=== PATIENT | female | born 1950 | race Caucasian/White ===

== ENCOUNTER → 2018-01-28 09:53 | Outpatient (CLI) | payer MEDICARE, OTHER, SELFPAY ==
--- NOTE | 2018-01-28 | DI.US.S_ITS ---
PROCEDURE: US ABDOMEN COMPLETE INDICATIONS: CIRRHOSIS TECHNIQUE: Real-time scanning was performed of the abdominal and retroperitoneal organs, with image documentation. COMPARISON: [facility], US, ABDOMEN COMPLETE, 06/16/2016, 9:58. [facility], US, ABDOMEN COMPLETE, 12/13/2015, 10:15. FINDINGS: Liver: Liver is normal in size and homogeneous in echotexture, but the hepatic margins are nodular suspicious for representing underlying cirrhosis. Gallbladder: Surgically absent. Biliary ducts: Intrahepatic bile ducts are non-dilated. Extrahepatic bile duct caliber measures 8.5 mm. Normal is 6-7 mm or less in diameter, or 10 mm or less post-cholecystectomy. Pancreas: Visualized portions of the pancreas are sonographically normal. Spleen: Spleen is normal in size and homogeneous in echotexture. Kidneys: Kidneys are normal in size and echotexture. Right kidney measures 9.9 cm long; left kidney measures 9.4 cm long. No hydronephrosis or nephrolithiasis. No solid masses. Aorta: Visualized aorta is normal in caliber at less than 3 cm. Iliacs: Proximal common iliac arteries are normal in caliber at less than 2.5 cm. IVC: Intrahepatic inferior vena cava is patent. Miscellaneous: No free abdominal fluid. IMPRESSION: Lobulated margins of the liver, suspicious for underlying cirrhosis. No hepatic mass lesion found. Prior cholecystectomy. Dictated by: Rolando Gregg M.D. on 01/28/2018 at 10:53 Approved by: Rolando Gregg M.D. on 01/28/2018 at 10:55
[2018-01-28 10:48] LABS: Add Manual Diff / Slide Review NO; Eosinophils Percent Auto 1.3 % (2-4); Hematocrit 46.3 % (36-46); Hemoglobin 15.7 g/dL (12.0-16.0); Lymphocytes Percent Auto 17.8 % (25-40); Mean Corpuscular HGB Conc 33.8 % (30-36); Mean Corpuscular Hemoglobin 30.2 PG (26-34); Mean Corpuscular Volume 89.4 fL (80-100); Monocytes Percent Auto 6.3 % (3-14); Neutrophils Absolute Auto 3500 /uL (3000-5900); Neutrophils Percent Auto 73.6 % (50-75); Platelet Count 109 X10^3/uL (150-400); Red Blood Cell Count 5.18 X10^6/uL (4.0-5.2); Red Cell Distribution Width 14.9 % (11.6-14.8); White Blood Cell Count 4.8 X10^3/uL (4.5-11.0)
[2018-01-28 11:01] LABS: INR 1.2 (0.9-1.3); Prothrombin Time 13.4 SECONDS (10.1-12.7)
[2018-01-28 11:53] LABS: Alanine Aminotransferase 31 IU/L (9-52); Albumin 4.4 g/dL (3.5-5.0); Albumin Globulin Ratio 1.5 (1.0-2.8); Alkaline Phosphatase 104 U/L (38-126); Aspartate Aminotransferase 28 IU/L (14-36); BUN Creatinine Ratio 12.9 (6-22); Bilirubin Total 0.6 mg/dL (0.2-1.3); Blood Urea Nitrogen 9 mg/dL (7-17); Carbon Dioxide 30 mmol/L (22-32); Chloride 105 mmol/L (98-107); Estimated Glomerular Filt Rate > 60.0 mL/min (>60); Globulin 2.9 g/dL (1.7-4.1); Glucose 101 mg/dL (80-110); HEMOLYSIS < 15 (0-50); Potassium 4.7 mmol/L (3.4-5.1); Sodium 146 mmol/L (137-145); Total Protein 7.3 g/dL (6.3-8.2)
[2018-01-30 15:07] LABS: Alpha Fetoprotein 3.1 ng/mL (< 6.1)
== END ==
PROVIDERS: PCP Internal Medicine; Visit Provider Internal Medicine
DX: K74.60 Unspecified cirrhosis of liver (principal); F41.1 Generalized anxiety disorder; I85.10 Secondary esophageal varices without bleeding; Z90.49 Acquired absence of other specified parts of digestive tract
CPT/HCPCS: 36415; 76700; 80053; 82105; 85025; 85610

== ENCOUNTER → 2018-03-22 12:29 | Outpatient (CLI) | payer MEDICARE, OTHER, SELFPAY ==
--- NOTE | 2018-03-22 | DI.RAD.S_ITS ---
This blank DEXA report has been sent in error by the PACS system. The correct and complete report will be forthcoming in 1-2 days. Thank you for your patience and understanding. Dictated by: Javier Kramer M.D. on 03/22/2018 at 14:18 Approved by: Jaiver Kramer M.D. on 03/22/2018 at 14:18
--- NOTE | 2018-03-22 | DI.MG.S_ITS ---
BILATERAL DIGITAL SCREENING MAMMOGRAM 3D/2D WITH CAD: 03/22/2018 CLINICAL: Routine screening. Comparison is made to exams dated: 12/13/2015 mammogram, 02/13/2014 mammogram, and 07/06/2012 mammogram - [facility]. There are scattered fibroglandular elements in both breasts. Current study was also evaluated with a Computer Aided Detection (CAD) system. There are benign calcifications in both breasts. No significant masses, calcifications, or other findings are seen in either breast. There has been no significant interval change. IMPRESSION: There is no mammographic evidence of malignancy. A 1 year screening mammogram is recommended. This exam was interpreted at Station ID: [id number]. NOTE: For mammograms, a report in lay terms will be sent to the patient. Approximately 15% of breast malignancies will not be visualized mammographically. In the management of a palpable breast mass, a negative mammogram must not discourage biopsy of a clinically suspicious lesion. Electronically Signed By: Santana graham/khurram:03/22/2018 17:34:58 letter sent: Normal Exam ACR BI-RADS Category 2: Benign Finding(s) 3342F
== END ==
PROVIDERS: PCP Internal Medicine; Visit Provider Internal Medicine
DX: Z12.31 Encounter for screening mammogram for malignant neoplasm of breast (principal); M85.88 Other specified disorders of bone density and structure, other site; Z78.0 Asymptomatic menopausal state; F17.200 Nicotine dependence, unspecified, uncomplicated; Z82.62 Family history of osteoporosis
CPT/HCPCS: 77063; 77067; 77080

== ENCOUNTER → 2018-06-10 09:43 | Outpatient (CLI) | payer MEDICARE, OTHER, SELFPAY ==
[2018-06-10 10:25] LABS: Influenza A and B by PCR Rapid Negative (Negative)
== END ==
PROVIDERS: PCP Internal Medicine; Visit Provider Physician Assistant
DX: R05 Cough (principal)
CPT/HCPCS: 87400

== ENCOUNTER → 2018-06-10 10:28 | Outpatient (CLI) | payer MEDICARE, OTHER, SELFPAY ==
--- NOTE | 2018-06-10 10:30 | DI.RAD.S_ITS ---
PROCEDURE: XR CHEST 2V INDICATIONS: cough TECHNIQUE: 2 views of the chest were acquired. COMPARISON: [facility], , CHEST 2 VIEW, 03/15/2013, 11:24. FINDINGS: Surgical changes and devices: Surgical clips in the gallbladder fossa. Lungs and pleura: Lungs are hyperinflated with chronic coarse interstitial markings. There is a small posterior right lower lobe consolidation seen best on lateral view. No pleural effusions or pneumothorax. Mediastinum: Mediastinal contours are normal. Heart size is normal. Bones and chest wall: No suspicious bony abnormalities. Soft tissues appear unremarkable. IMPRESSION: 1. Right lower lobe consolidation suggestive of focal pneumonia. No significant pleural effusion. 2. Finding superimposed on mild emphysema. Dictated by: Desiree Stallworth M.D. on 06/10/2018 at 10:52 Approved by: Desiree Stallworth M.D. on 06/10/2018 at 10:54
== END ==
PROVIDERS: PCP Internal Medicine; Visit Provider Physician Assistant
DX: R05 Cough (principal); J43.9 Emphysema, unspecified
CPT/HCPCS: 71046; 87400

== ENCOUNTER → 2018-09-13 07:59 | Outpatient (CLI) | payer MEDICARE, OTHER, SELFPAY ==
--- NOTE | 2018-09-13 | DI.US.S_ITS ---
PROCEDURE: US ABDOMEN COMPLETE INDICATIONS: CIRRHOSIS TECHNIQUE: Real-time scanning was performed of the abdominal and retroperitoneal organs, with image documentation. COMPARISON: [facility], US, US ABDOMEN COMPLETE, 01/28/2018, 10:01. FINDINGS: Liver: Liver is coarse in echotexture and there is scalloping of the hepatic capsule. No focal mass lesion. Limited Doppler assessment demonstrates appropriate hepatopedal flow within the main portal vein. Gallbladder: Surgically absent. Biliary ducts: Intrahepatic bile ducts are non-dilated. Extrahepatic bile duct caliber measures 7.0 mm. Normal is 6-7 mm or less in diameter, or 10 mm or less post-cholecystectomy. Pancreas: Visualized portions of the pancreas are sonographically normal. Spleen: Spleen is normal in size and homogeneous in echotexture. Kidneys: Kidneys are normal in size and echotexture. Right kidney measures 9.5 cm long; left kidney measures 10.4 cm long. No hydronephrosis or nephrolithiasis. No solid masses. Aorta: Visualized aorta is normal in caliber at less than 3 cm. Iliacs: Proximal common iliac arteries are normal in caliber at less than 2.5 cm. IVC: Intrahepatic inferior vena cava is patent. Miscellaneous: No free abdominal fluid. IMPRESSION: 1. Cirrhotic hepatic morphology redemonstrated similar to prior examination and no focal hepatic lesion is seen. Dictated by: Charlie Steward [facility] Interpreted: Rolando Gregg MD on 09/13/2018 at 10:36 Approved by: Rolando Gregg M.D. on 09/13/2018 at 12:02
[2018-09-13 08:29] LABS: Add Manual Diff / Slide Review NO; Basophils Absolute Auto 0 /uL (0-100); Basophils Percent Auto 0.9 % (0-2); Eosinophils Absolute Auto 100 /uL (0-450); Eosinophils Percent Auto 1.2 % (2-4); Hematocrit 46.5 % (36-46); Hemoglobin 15.9 g/dL (12.0-16.0); Lymphocytes Absolute Auto 800 /uL (1100-4500); Lymphocytes Percent Auto 14.9 % (25-40); Mean Corpuscular HGB Conc 34.3 % (30-36); Mean Corpuscular Hemoglobin 30.7 PG (26-34); Mean Corpuscular Volume 89.5 fL (80-100); Monocytes Absolute Auto 300 /uL (0-900); Monocytes Percent Auto 5.7 % (3-14); Neutrophils Absolute Auto 4300 /uL (1500-7000); Neutrophils Percent Auto 77.3 % (50-75); Platelet Count 117 X10^3/uL (150-400); Red Blood Cell Count 5.19 X10^6/uL (4.0-5.2); Red Cell Distribution Width 14.4 % (11.6-14.8); White Blood Cell Count 5.6 X10^3/uL (4.5-11.0)
[2018-09-13 09:03] LABS: INR 1.2 (0.9-1.3); Prothrombin Time 13.8 SECONDS (10.1-12.7)
[2018-09-13 09:09] LABS: Alanine Aminotransferase 17 IU/L (9-52); Albumin 4.3 g/dL (3.5-5.0); Albumin Globulin Ratio 1.2 (1.0-2.8); Alkaline Phosphatase 106 U/L (38-126); Aspartate Aminotransferase 29 IU/L (14-36); BUN Creatinine Ratio 12.9 (6-22); Bilirubin Total 0.8 mg/dL (0.2-1.3); Blood Urea Nitrogen 9 mg/dL (7-17); Calcium 9.2 mg/dL (8.4-10.2); Carbon Dioxide 29 mmol/L (22-32); Chloride 104 mmol/L (98-107); Estimated Glomerular Filt Rate > 60.0 mL/min (>60); Globulin 3.5 g/dL (1.7-4.1); Glucose 135 mg/dL (80-110); HEMOLYSIS < 15 (0-50); Sodium 142 mmol/L (137-145); Total Protein 7.8 g/dL (6.3-8.2)
[2018-09-15 12:26] LABS: Alpha Fetoprotein 3.5 ng/mL (< 6.1)
== END ==
PROVIDERS: PCP Internal Medicine; Visit Provider Internal Medicine
DX: K74.60 Unspecified cirrhosis of liver (principal); I85.10 Secondary esophageal varices without bleeding; F41.1 Generalized anxiety disorder
CPT/HCPCS: 36415; 76700; 80053; 82105; 85025; 85610

== ENCOUNTER → 2019-03-07 11:09 | Outpatient (CLI) | payer MEDICARE, OTHER, SELFPAY ==
--- NOTE | 2019-03-07 | DI.US.S_ITS ---
PROCEDURE: US ABDOMEN COMPLETE INDICATIONS: UNSPECIFIED CIRRHOSIS OF LIVER TECHNIQUE: Real-time scanning was performed of the abdominal and retroperitoneal organs, with image documentation. COMPARISON: [facility], US, US ABDOMEN COMPLETE, 01/28/2018, 10:01. [facility], US, ABDOMEN LIMITED, 07/01/2017, 9:00. US, US ABDOMEN COMPLETE, 01/22/2017, 9:45. [facility], US, US ABDOMEN COMPLETE, 09/13/2018, 9:00. FINDINGS: Liver: Imaged liver demonstrates nodular contour and diffusely increased echogenicity of the hepatic parenchyma. Gallbladder: Gallbladder is not visualized on this exam. Biliary ducts: Intrahepatic bile ducts are non-dilated. Hepatic duct diameter measures 4 mm. Common bile duct caliber measures 11 mm. Normal is 6-7 mm or less in diameter, or 10 mm or less post-cholecystectomy. Pancreas: Visualized portions of the pancreatic head are sonographically unremarkable. The body and tail of the pancreas are obscured by overlying bowel gas. Spleen: Spleen is normal in size (10.4 cm in long axis) and homogeneous in echotexture. Kidneys: Kidneys are normal in size and echotexture. Right kidney measures 9.9 cm long; left kidney measures 9.8 cm long. No hydronephrosis or nephrolithiasis. No solid masses. Aorta: Imaged proximal abdominal aorta measures 2.1 cm. Imaged mid abdominal aorta measures 1.5 cm. Imaged distal abdominal aorta measures 1.1 cm. Iliacs: Proximal common iliac arteries are not well visualized on this exam. IVC: Intrahepatic inferior vena cava is patent. Miscellaneous: No free abdominal fluid. IMPRESSION: 1. Nodular hepatic contour compatible with cirrhosis. There is also diffuse increased echogenicity of the hepatic parenchyma, which can be seen with hepatic steatosis, cirrhosis, and/or hepatitis. 2. Gallbladder is absent, consistent with prior cholecystectomy. Common bile duct caliber is mildly dilated at 11 mm, likely secondary to post cholecystectomy changes, with a distal obstructive lesion thought less likely. Consider CT if there is continued clinical concern. Dictated by: Santana Hayward M.D. on 03/07/2019 at 16:17 Approved by: Santana Hayward M.D. on 03/07/2019 at 16:33
[2019-03-07 11:38] LABS: Add Manual Diff / Slide Review NO; Basophils Absolute Auto 0 /uL (0-100); Basophils Percent Auto 0.7 % (0-2); Eosinophils Absolute Auto 100 /uL (0-450); Eosinophils Percent Auto 1.1 % (2-4); Hematocrit 44.4 % (36-46); Hemoglobin 15.4 g/dL (12.0-16.0); Lymphocytes Absolute Auto 900 /uL (1100-4500); Lymphocytes Percent Auto 15.8 % (25-40); Mean Corpuscular HGB Conc 34.6 % (30-36); Mean Corpuscular Hemoglobin 31.6 PG (26-34); Mean Corpuscular Volume 91.3 fL (80-100); Monocytes Absolute Auto 400 /uL (0-900); Monocytes Percent Auto 8.1 % (3-14); Neutrophils Absolute Auto 4000 /uL (1500-7000); Neutrophils Percent Auto 74.3 % (50-75); Platelet Count 119 X10^3/uL (150-400); Red Blood Cell Count 4.86 X10^6/uL (4.0-5.2); Red Cell Distribution Width 14.6 % (11.6-14.8); White Blood Cell Count 5.4 X10^3/uL (4.5-11.0)
[2019-03-07 11:56] LABS: INR 1.1 (0.9-1.3)
[2019-03-07 12:02] LABS: Alanine Aminotransferase 22 IU/L (<35); Albumin 4.4 g/dL (3.5-5.0); Albumin Globulin Ratio 1.5 (1.0-2.8); Alkaline Phosphatase 132 U/L (38-126); Aspartate Aminotransferase 35 IU/L (14-36); BUN Creatinine Ratio 15.7 (6-22); Bilirubin Total 0.6 mg/dL (0.2-1.3); Blood Urea Nitrogen 11 mg/dL (7-17); Calcium 9.3 mg/dL (8.4-10.2); Carbon Dioxide 31 mmol/L (22-32); Chloride 106 mmol/L (98-107); Estimated Glomerular Filt Rate > 60.0 mL/min (>60); Glucose 115 mg/dL (80-110); HEMOLYSIS < 15 (0-50); Potassium 4.7 mmol/L (3.4-5.1); Sodium 143 mmol/L (137-145); Total Protein 7.4 g/dL (6.3-8.2)
[2019-03-11 12:52] LABS: Alpha Fetoprotein 3.1 ng/mL (< 6.1)
== END ==
PROVIDERS: PCP Internal Medicine; Visit Provider Internal Medicine
DX: K74.60 Unspecified cirrhosis of liver (principal); K83.8 Other specified diseases of biliary tract; Z90.49 Acquired absence of other specified parts of digestive tract
CPT/HCPCS: 36415; 76700; 80053; 82105; 85025; 85610

== ENCOUNTER → 2019-09-13 14:16 | Outpatient (CLI) | payer MEDICARE, OTHER, SELFPAY ==
[2019-09-13 15:03] LABS: Add Manual Diff / Slide Review NO; Basophils Absolute Auto 100 /uL (0-100); Basophils Percent Auto 0.9 % (0-2); Eosinophils Absolute Auto 100 /uL (0-450); Eosinophils Percent Auto 2.2 % (2-4); Hematocrit 43.4 % (36-46); Hemoglobin 15.2 g/dL (12.0-16.0); Lymphocytes Absolute Auto 1300 /uL (1100-4500); Lymphocytes Percent Auto 22.5 % (25-40); Mean Corpuscular HGB Conc 35.1 % (30-36); Mean Corpuscular Hemoglobin 31.9 PG (26-34); Mean Corpuscular Volume 90.7 fL (80-100); Monocytes Absolute Auto 400 /uL (0-900); Monocytes Percent Auto 7.3 % (3-14); Neutrophils Absolute Auto 4000 /uL (1500-7000); Neutrophils Percent Auto 67.1 % (50-75); Platelet Count 103 X10^3/uL (150-400); Red Blood Cell Count 4.78 X10^6/uL (4.0-5.2); Red Cell Distribution Width 14.2 % (11.6-14.8); White Blood Cell Count 5.9 X10^3/uL (4.5-11.0)
[2019-09-13 15:50] LABS: Alanine Aminotransferase 17 IU/L (<35); Albumin 4.1 g/dL (3.5-5.0); Albumin Globulin Ratio 1.5 (1.0-2.8); Alkaline Phosphatase 112 U/L (38-126); Aspartate Aminotransferase 30 IU/L (14-36); BUN Creatinine Ratio 12.3 (6-22); Bilirubin Total 0.4 mg/dL (0.2-1.3); Blood Urea Nitrogen 8 mg/dL (7-17); Carbon Dioxide 28 mmol/L (22-32); Chloride 104 mmol/L (98-107); Estimated Glomerular Filt Rate > 60.0 mL/min (>60); Globulin 2.7 g/dL (1.7-4.1); Glucose 87 mg/dL (80-110); HEMOLYSIS < 15 (0-50); Potassium 4.2 mmol/L (3.4-5.1); Sodium 137 mmol/L (137-145); Total Protein 6.8 g/dL (6.3-8.2)
[2019-09-13 16:21] LABS: INR 1.2 (0.9-1.3); Prothrombin Time 13.5 SECONDS (10.1-12.7)
[2019-09-14 06:36] LABS: Alpha Fetoprotein 2.4 ng/mL (0.0-8.3)
== END ==
PROVIDERS: PCP Internal Medicine; Referring Provider Internal Medicine; Visit Provider Internal Medicine
DX: K74.60 Unspecified cirrhosis of liver (principal)
CPT/HCPCS: 36415; 80053; 82105; 85025; 85610

== ENCOUNTER → 2019-09-26 14:12 | Outpatient (CLI) | payer MEDICARE, OTHER, SELFPAY ==
--- NOTE | 2019-09-26 | DI.US.S_ITS ---
PROCEDURE: US ABDOMEN COMPLETE INDICATIONS: CIRRHOSIS TECHNIQUE: Real-time scanning was performed of the abdominal and retroperitoneal organs, with image documentation. COMPARISON: [facility], US, US ABDOMEN COMPLETE, 09/13/2018, 9:00. [facility], US, US ABDOMEN COMPLETE, 03/07/2019, 11:29. FINDINGS: Liver: Liver parenchyma is coarse in echotexture and there is moderate scalloping of the hepatic capsule. No discrete liver mass. Gallbladder: Gallbladder Has beensurgically removed. Biliary ducts: Intrahepatic bile ducts are non-dilated. Extrahepatic bile duct caliber measures 10.5 mm. Normal is 6-7 mm or less in diameter, or 10 mm or less post-cholecystectomy. Pancreas: Visualized portions of the pancreas are sonographically normal. Spleen: Spleen is normal in size and homogeneous in echotexture. Kidneys: Kidneys are normal in size and echotexture. Right kidney measures 9.9 cm long; left kidney measures 9.8 cm long. No hydronephrosis or nephrolithiasis. No solid masses. Aorta: Visualized aorta is normal in caliber at less than 3 cm. Iliacs: not well seen. IVC: Intrahepatic inferior vena cava is patent. Miscellaneous: No free abdominal fluid. IMPRESSION: Cirrhotic hepatic morphology redemonstrated similar to prior examination and no discrete liver mass is seen. Dictated by: Charlie FERRIS Interpreted: Arpit Carcamo MD on 09/26/2019 at 16:25 Approved by: Arpit Carcamo M.D. on 09/26/2019 at 17:43
== END ==
PROVIDERS: PCP Internal Medicine; Referring Provider Internal Medicine; Visit Provider Internal Medicine
DX: K70.30 Alcoholic cirrhosis of liver without ascites (principal); Z90.49 Acquired absence of other specified parts of digestive tract
CPT/HCPCS: 76700

== ENCOUNTER → 2020-07-16 09:52 | Outpatient (CLI) | payer MEDICARE, OTHER, SELFPAY ==
[2020-07-16 15:37] LABS: COVID19 -Nasal RAPID Negative (Negative)
== END ==
PROVIDERS: PCP Internal Medicine; Visit Provider Student in an Organized Health Care Education/Training Program
DX: Z01.812 Encounter for preprocedural laboratory examination (principal); Z20.822 Contact with and (suspected) exposure to COVID-19
CPT/HCPCS: 87635; C9803

== ENCOUNTER 2020-07-17 12:26 | Day surgery (SDC) | payer MEDICARE, OTHER, SELFPAY ==
[2020-07-17] MEDS: PROPARACAINE 0.5% OPHTH SOL 2 DROPS EYE-OP (13:04)
[2020-07-17] MEDS: CATARACT EYE COMPOUND (10 DROPS/SYRINGE) 3 DROPS EYE-OP (13:05)
[2020-07-17 13:12] VITALS: BP 129/92; PULSE 73; RESP 20; TEMP 36.4; O2SAT 98; BMI 23.0
--- NOTE | 2020-07-17 13:15 | PM.PREOP ---
Pre-operative Note Interval Note History & Physical reviewed/Exam performed by Physician: Yes Changes to H&P: No
--- NOTE | 2020-07-17 13:15 | PM.OP.1 ---
Operative Date/Time/Diagnoses Pre-op diagnosis: Nuclear cataract right eye Procedure & Clinicians Procedure: Cataract Surgery Same procedure as scheduled: Yes Surgeon: Justin Vasquez Anesthesia Type: MAC +/- and Sedation Operative Notes Procedure in detail: Patient brought to the operating suite. Tetracaine drops placed in the right eye. Patient was prepped and draped in sterile manner. Wire lid speculum was placed in the eye. Betadine drops were placed on the eye. This was irrigated. Lidocaine jelly was placed on the eye. A paracentesis port was created with a side-port blade. 0.1 mL 1% preservative free lidocaine was injected into the anterior chamber. The anterior chamber was deepened with viscoelastic. 2.6 mm keratome was used to create a temporal clear corneal incision. There was anterior synechiea superiorly and this was disected with viscoelastic. The superior 1/3 of the cornea was very haze and this limited view into anterior chamber. Cystotome and Utrata forceps were used to create continuous tear capsulorrhexis. Balanced salt solution was used to hydro dissect the nucleus. The phacoemulsification handpiece was inserted and the nucleus was removed using the stop and chop technique. The irrigation aspiration handpiece was inserted and the remaining cortex was removed. Anterior chamber was deepened with viscoelastic. An Peterson ZCB00 intraocular lens with a power of 25.0 was injected into the capsular bag. Irrigation aspiration handpiece was inserted and the remaining viscoelastic was removed. Incision was hydrated with balanced salt solution and found to be leak free with pressure with Weck-Radha sponges. 0.1 mL Vigamox injected anterior chamber. 0.3 mL Kenalog 10 mg was injected subconjunctivally. Lid speculum was removed. The patient left the operating room in excellent condition. Complications: none Post-operative Condition: stable Disposition: same day surgery
[2020-07-17] MEDS: LIDOCAINE 2% (GLYDO) 6 ML GEL TOP (13:38)
[2020-07-17] MEDS: TRIAMCINOLONE 50 MG/5 ML VIAL INJ (13:39)
[2020-07-17] MEDS: PHENYLEPHRINE/LIDOCAINE VIAL (OR) 0.2 ML EYE-OP (13:39)
[2020-07-17] MEDS: BALANCED SALT IRRIG SOLN NO.2 500 ML, EPINEPHrine 1 MG IRR (13:39)
[2020-07-17] MEDS: CHONDROIDTIN/SOD HYALURONATE 1.05 ML SYRINGE INTRAOCULA (13:40)
[2020-07-17] MEDS: MOXIFLOXACIN INJ 4 MG/0.8 ML VIAL 0.5 MG EYE-OP (13:40)
[2020-07-17] MEDS: TETRACAINE 0.5% OPHTH DROPS 4 ML 2 DROPS EYE-OP (13:40)
[2020-07-17 13:53] VITALS: BP 107/72; PULSE 62; RESP 14; TEMP 36.8; O2SAT 95
== END 2020-07-17 14:05 | disposition home or self-care (01) ==
PROVIDERS: PCP Internal Medicine; Referring Provider Internal Medicine; Visit Provider Ophthalmology
PROC: (CPT 66984; principal; 2020-07-17 14:15)
DX: H25.11 Age-related nuclear cataract, right eye (principal); I10 Essential (primary) hypertension
CPT/HCPCS: 66984; J0171; J2250; J3301

== ENCOUNTER → 2020-07-30 11:11 | Outpatient (CLI) | payer MEDICARE, OTHER, SELFPAY ==
[2020-07-30 13:24] LABS: COVID19 -Nasal RAPID Negative (Negative)
== END ==
PROVIDERS: PCP Internal Medicine; Visit Provider Student in an Organized Health Care Education/Training Program
DX: Z01.812 Encounter for preprocedural laboratory examination (principal); Z20.822 Contact with and (suspected) exposure to COVID-19
CPT/HCPCS: 87635; C9803

== ENCOUNTER → 2022-05-27 10:53 | Outpatient (CLI) | payer MEDICARE, OTHER, SELFPAY ==
--- NOTE | 2022-05-27 | DI.MG.S_ITS ---
BILATERAL DIGITAL SCREENING MAMMOGRAM 3D/2D WITH CAD: 05/27/2022 CLINICAL: Routine screening. Comparison is made to exams dated: 03/22/2018 mammogram and 12/13/2015 mammogram - [facility]. There are scattered areas of fibroglandular density in both breasts (category b / 25%-50% glandular tissue). Current study was also evaluated with a Computer Aided Detection (CAD) system. There are benign calcifications in both breasts. No significant masses, calcifications, or other findings are seen in either breast. There has been no significant interval change. IMPRESSION: BENIGN There is no mammographic evidence of malignancy. A 1 year screening mammogram is recommended. Based on the Tyrer Cuzick model (a risk assessment model) the patient's lifetime risk is 2.7% and her 10 year risk is 2.2%. According to the ACR, ACS, and NCCN guidelines, an annual breast MRI exam along with mammogram is recommended if the patient's lifetime risk is 20% or greater. This exam was interpreted at Station ID: [id number]. NOTE: For mammograms, a report in lay terms will be sent to the patient. Approximately 15% of breast malignancies will not be visualized mammographically. In the management of a palpable breast mass, a negative mammogram must not discourage biopsy of a clinically suspicious lesion. Electronically Signed By: Arpit resendiz/khurram:05/27/2022 12:02:51 letter sent: Normal Exam ACR BI-RADS Category 2: Benign Finding(s) 3342F
== END ==
PROVIDERS: PCP Physician Assistant; Referring Provider Physician Assistant; Visit Provider Physician Assistant
DX: Z12.31 Encounter for screening mammogram for malignant neoplasm of breast (principal)
CPT/HCPCS: 77063; 77067

== ENCOUNTER 2024-08-06 12:00 | Emergency (ER) | payer MEDICARE, OTHER, SELFPAY ==
[2024-08-06 12:05] VITALS: BP 130/75; PULSE 85; RESP 18; TEMP 36.8; O2SAT 97; BMI 27.1
--- NOTE | 2024-08-06 12:12 | DI.RAD.S_ITS ---
PROCEDURE: XR KNEE RT 3V INDICATIONS: pain after twisting knee thursday TECHNIQUE: 3 views of the knee were acquired. COMPARISON: None. FINDINGS: Bones: No acute fractures or dislocations. No suspicious bony lesions. Mild tricompartmental osteoarthrosis. Soft tissues: Small joint effusion. No suspicious soft tissue calcifications. IMPRESSION: Small joint effusion. No acute osseous abnormality. If there is continued clinical concern or persistent symptoms, repeat radiographs or cross-sectional imaging (e.g. CT, MRI) may be helpful for further evaluation. Approved by: Arpit Carcamo M.D. on 08/06/2024 at 11:53
--- NOTE | 2024-08-06 13:22 | ED_ITS ---
HPI - Extremity Injury (Lower) <Candy Bowden PA-C - Last Filed: 08/06/24 13:28> General Chief Complaint: Extremity Injury, Lower Stated Complaint: R Knee Injury Time Seen by Provider: 08/06/24 12:56 Source: patient Mode of arrival: Wheelchair History of Present Illness HPI Narrative: Ms. Nichols is a very pleasant 73-year-old female who presents to the emergency department for right knee pain x 4 days. States that on Thursday she was twisting to but groceries away in the Fridge when she developed acute pain of the right knee. She started to use crutches and a brace that she purchased at the drug store which was helping so she stopped using them and instead applied an Rob wrap and took Tylenol however the pain started to come back and get worse today. She is ambulatory. She denies any numbness, tingling, weakness, wounds, bruising or swelling. She was unsure if she could take aspirin for the pain. Her current prescriptions or only eye drops. No blood thinner use or history of CKD. Related Data Home Medications Medication Instructions Recorded Confirmed omeprazole 20 mg capsule,delayed 20 mg PO DAILY 06/10/18 07/17/20 release Allergies Allergy/AdvReac Type Severity Reaction Status Date / Time No Known Drug Allergies Allergy Verified 06/10/18 09:48 Review of Systems <Candy Bowden PA-C - Last Filed: 08/06/24 13:28> Review of Systems ROS Unobtainable: All systems reviewed & are unremarkable except as noted in HPI and below Patient History <Candy Bowden PA-C - Last Filed: 08/06/24 13:28> Social History household members: family Smoking Status: Current every day smoker Smoking Status: Current every day smoker tobacco type: cigarettes alcohol intake frequency: holidays/special occasions only Alcohol type: hard liquor Exam <Candy Bowden PA-C - Last Filed: 08/06/24 13:28> Narrative Exam Narrative: GENERAL: 73 year old patient appears stated age. Well-developed patient, in no acute distress. HEAD: Atraumatic. Normocephalic. CARDIOVASCULAR: Regular rate RESPIRATORY: ?Nonlabored respirations. ?Speaking in clear, full sentences. ? EXTREMITIES: Right knee with subjective pain however no reproducible tenderness, no reproducible joint laxity, no deformities erythema swelling or ecchymosis. Palpable DP and PT pulse, sensation intact to light touch in the foot in the leg. NEURO: AOx3. ?Clear speech. ?Moves all 4 extremities appropriately. SKIN: No rash or erythema of visible areas Initial Vital Signs Initial Vital Signs: Vital Signs Temperature 98.2 F 08/06/24 12:05 Pulse Rate 85 08/06/24 12:05 Respiratory Rate 18 08/06/24 12:05 Blood Pressure 130/75 08/06/24 12:05 Pulse Oximetry 97 08/06/24 12:05 Oxygen Delivery Method Room Air 08/06/24 12:05 <Steve Sams MD - Last Filed: 08/06/24 20:39> Initial Vital Signs Initial Vital Signs: Vital Signs Temperature 98.2 F 08/06/24 12:05 Pulse Rate 85 08/06/24 12:05 Respiratory Rate 18 08/06/24 12:05 Blood Pressure 130/75 08/06/24 12:05 Pulse Oximetry 97 08/06/24 12:05 Oxygen Delivery Method Room Air 08/06/24 12:05 Course <Candy Bowden PA-C - Last Filed: 08/06/24 13:28> Orders Ordered: ED Orders 08/06/24 12:12 XR knee RT 3V Stat Vital Signs Vital signs: Vital Signs - 8 hr 08/06/24 12:05 Temperature 98.2 F Pulse Rate 85 Respiratory Rate 18 Blood Pressure 130/75 Pulse Oximetry 97 Oxygen Delivery Method Room Air <Steve Sams MD - Last Filed: 08/06/24 20:39> Orders Ordered: ED Orders 08/06/24 12:12 XR knee RT 3V Stat Vital Signs Vital signs: Vital Signs - 8 hr 08/06/24 12:05 Temperature 98.2 F Pulse Rate 85 Respiratory Rate 18 Blood Pressure 130/75 Pulse Oximetry 97 Oxygen Delivery Method Room Air MDM - Extremity Injury (Lower) <Candy Bowden PA-C - Last Filed: 08/06/24 13:28> Medical Records Attestation: I reviewed the patient's medical records. Imaging Data Right Knee X-Ray: Radiologist's Impression: PROCEDURE: XR KNEE RT 3V INDICATIONS: pain after twisting knee thursday TECHNIQUE: 3 views of the knee were acquired. COMPARISON: None. FINDINGS: Bones: No acute fractures or dislocations. No suspicious bony lesions. Mild tricompartmental osteoarthrosis. Soft tissues: Small joint effusion. No suspicious soft tissue calcifications. IMPRESSION: Small joint effusion. No acute osseous abnormality. If there is continued clinical concern or persistent symptoms, repeat radiographs or cross-sectional imaging (e.g. CT, MRI) may be helpful for further evaluation. Approved by: Arpit Carcamo M.D. on 08/06/2024 at 11:53 [facility] Narrative Medical decision making narrative: 73-year-old female who presents to the emergency department for right knee pain x 4 days. Differential diagnosis includes but is not limited to right knee sprain, strain, fracture, dislocation, arthritis, etc. On exam the patient is in no acute distress, nontoxic-appearing, all vital signs within normal limits. She has subjective pain with movement of the right knee, no reproducible joint laxity, tenderness, deformities. Leg is neurovascularly intact. She has been ambulatory since the injury intermittent newly using crutches. X-ray obtained reveals small joint effusion, mild tricompartmental osteoarthritis, no acute osseous abnormality. Recommend Rob wrap, rice therapy, weight-bearing as tolerated, diclofenac gel, ibuprofen and Tylenol, follow up with PCP. Discussed strict ED return precautions. Patient verbalized understanding of all information agreeable to the plan. She is stable for discharge home. Discharge Plan Departure Patient Disposition: Home Clinical Impression: Right knee sprain Qualifiers: Encounter type: initial encounter Involved ligament of knee: unspecified ligament Qualified Code(s): S83.91XA - Sprain of unspecified site of right knee, initial encounter Osteoarthritis of right knee Qualifiers: Osteoarthritis type: unspecified Qualified Code(s): M17.11 - Unilateral primary osteoarthritis, right knee Instructions: DI for Knee Sprain Activity Restrictions/Additional Instructions: Dear Ms. Nichols, Thank you for coming to the emergency department. Today your right knee x-ray did not show any broken bones but it did show osteoarthritis and a small joint effusion. I am concerned that you sprained the soft tissues of the right knee. Please wear the Rob wrap provided to you or your knee brace at home to help with support, and use crutches if needed. Please use RICE therapy for your pain in addition to ibuprofen/acetaminophen. Rest the painful area. Ice the area of pain/swelling for at least 15 minutes, 4x a day. Compress the area of swelling using a brace, wrap, or splint if applied. Elevate the painful or swollen extremity by supporting it above the level of the heart with pillows when sitting or laying. Please take Ibuprofen (Motrin/Advil) or Acetaminophen (Tylenol) for pain. These are available over the counter. You may take Ibuprofen 400 mg every 6 hours with food for pain. You may also take Acetaminophen 650 mg every 4-6 hours for pain. Do not exceed 3000 mg of Tylenol a day as this can cause liver damage. Do not drink alcohol with either of these medications. Please use topical Diclofenac/Voltaren gel on the right knee. Please follow up with your primary care doctor within the next 2-3 days for ER follow-up. (If you do not have a PCP you can call [phone]. ?to schedule an appointment with an [facility] Primary Care Provider) IF YOU DEVELOP ANY NEW OR WORSENING SYMPTOMS, RETURN TO THE ER! Please read the attached instructions, they highlight more specific treatments and interventions for you at home. Thank you for letting me participate in your care, Candy Bowden PA-C Prescriptions: No Action omeprazole 20 mg capsule,delayed release(DR/EC) 20 mg PO DAILY Referrals: Kayla Biswas PA-C [Primary Care Provider] - Stand Alone Forms: Patient Portal/API/Survey ED Sign-out <Steve Sams MD - Last Filed: 08/06/24 20:39> [facility]ign [facility] Attestation: I was immediately available in the department for consultation. This documentation has been reviewed and I agree with assessment and plan. Supervised by Setve Sams MD
== END 2024-08-06 13:42 | disposition home or self-care (01) ==
PROVIDERS: Emergency Provider Physician Assistant; PCP Physician Assistant
DX: S83.91XA Sprain of unspecified site of right knee, initial encounter (principal); M17.11 Unilateral primary osteoarthritis, right knee; X50.1XXA Overexertion from prolonged static or awkward postures, initial encounter
CPT/HCPCS: 73562; 99282; 99283

== ENCOUNTER → 2024-12-30 13:07 | Outpatient (CLI) | payer MEDICARE, OTHER, SELFPAY ==
--- NOTE | 2024-12-30 13:11 | DI.MRI.S_ITS ---
PROCEDURE: MR KNEE RT WO CON INDICATIONS: RT Knee Injury TECHNIQUE: Noncontrast sagittal PD fast spin echo and T2 fast spin echo with fat saturation, sagittal 3-D FLASH with fat saturation; coronal T1 spin echo and PD fast spin echo with fat saturation, and axial PD fast spin echo with fat saturation through the knee. COMPARISON: [facility], CR, XR KNEE RT 3V, 08/06/2024, 12:18. FINDINGS: Image quality: Excellent. Anterior cruciate ligament: Intact. Posterior cruciate ligament: Intact. Medial collateral ligament: Intact. Lateral collateral ligament: Intact. Medial meniscus: Radial tearing at the posterior root attachment of the medial meniscus with mild extrusion and intrasubstance degeneration of the meniscal body. Lateral meniscus: Intact. Medial and lateral tendons: The semimembranosus tendon insertions appear intact. Visualized portions of the pes anserinus tendons appear normal. The popliteus tendon is intact. Iliotibial band appears normal. Anterior structures: The quadriceps and patellar tendons appear intact. No patellar subluxation. No femoral trochlear dysplasia or ventral trochlear prominence. No edema in the infrapatellar fat pad. Bones: Flattening of the subchondral plate at the central anterior weight- bearing portion of the medial femoral condyle measuring approximately 1.7 x 1.0 cm with moderate osseous edema throughout the medial femoral condyle. Nonspecific osseous edema is seen in the central to lateral tibial plateau without a focal fracture line. Medial femorotibial cartilage: Moderately sized area full-thickness cartilage loss in the weight-bearing portion of the medial femorotibial compartment. Lateral femorotibial cartilage: Focal moderate grade partial thickness cartilage loss at the central portion of the lateral femoral condyle with focal subchondral edema. Patellofemoral cartilage: High-grade partial-thickness cartilage loss throughout the patellar cartilage with foci of subchondral cystic changes. Soft tissues: Moderate joint effusion. Small medial popliteal cyst. Distortion fatty infiltration of the distal semimembranosus muscle, which may be related to chronic denervation changes or proximal tendinopathy. IMPRESSION: 1. Cortical flattening at the central anterior weight-bearing portion of the medial femoral condyle is suspicious for a minimally depressed subchondral fracture. Moderate surrounding osseous edema. 2. Osseous edema at the central to lateral tibial plateau may be secondary to an osseous contusion, stress reaction, or overlying cartilage loss. 3. Radial tearing of the medial meniscus at the posterior root attachment with mild meniscal extrusion and intrasubstance degeneration. 4. Moderately sized area of full-thickness cartilage loss at the weight-bearing portion of the medial femorotibial compartment. 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 Focal grade 3 chondromalacia in the lateral femorotibial compartment at the lateral femoral condyle. 5. Cruciate and collateral ligaments are intact. Lateral meniscus is intact. 6. Moderate joint effusion. Small medial popliteal cyst. Approved by: Arpit Carcamo M.D. on 12/30/2024 at 14:54
== END ==
PROVIDERS: PCP Physician Assistant; Referring Provider Physician Assistant; Visit Provider Physician Assistant
DX: S83.231A Complex tear of medial meniscus, current injury, right knee, initial encounter (principal); M22.41 Chondromalacia patellae, right knee; M94.261 Chondromalacia, right knee; M25.461 Effusion, right knee; M71.21 Synovial cyst of popliteal space [Baker], right knee; X58.XXXA Exposure to other specified factors, initial encounter
CPT/HCPCS: 73721